=== PATIENT | female | born 1965 | race Asian ===

== ENCOUNTER 2016-09-17 16:45 | Emergency (ER) | payer OTHER ==
[2016-09-17] MEDS ORDERED: DEXAMETHASONE 10 MG/ML VIAL PO STA (17:01)
[2016-09-17] MEDS ORDERED: DEXAMETHASONE 10 MG/ML VIAL ONE (17:07)
[2016-09-17] MEDS ORDERED: CHERRY SYRUP 10 ML UDC PO ONE (17:07)
== END 2016-09-17 17:11 | disposition home or self-care (01) ==
DX: J02.0 Streptococcal pharyngitis (principal)
CPT/HCPCS: 87430; 99283; A9270

== ENCOUNTER 2016-10-01 17:40 | Emergency (ER) | payer OTHER | END 2016-10-01 18:25 | disposition home or self-care (01) | DX: J02.9 Acute pharyngitis, unspecified (principal) ==

== ENCOUNTER 2016-11-25 15:46 | Emergency (ER) | payer OTHER ==
[2016-11-25 15:53] VITALS: BP 118/74
[2016-11-25 16:12] LABS: RAPID STREP SCREEN REAGENT QC YELLOW (YELLOW)
--- NOTE | 2016-11-25 16:34 | ED Physician Documentation ---
PD HPI HEENT - Stated complaint Stated Complaint: SORE THROAT - Chief complaint Chief Complaint: Heent - History obtained from History obtained from: Patient - Additional information Additional information: 2 days sore throat with chills. No rhinorrhea, does have chronic non productive cough, not new. Review of Systems Constitutional: reports: Chills, Fatigue. denies: Fever Nose: denies: Rhinorrhea / runny nose, Congestion Throat: reports: Sore throat Respiratory: denies: Dyspnea GI: denies: Abdominal Pain, Vomiting PD PAST MEDICAL HISTORY - Past Medical History Cardiovascular: None Respiratory: None Neuro: None Endocrine/Autoimmune: None - Past Surgical History Past Surgical History: No - Present Medications Home Medications: Ambulatory Orders Medication Instructions Recorded Confirmed Penicillin V Potassium 500 mg PO QID #40 tablet 11/25/16 predniSONE [Deltasone] 60 mg PO DAILY 5 Days 11/25/16 - Allergies Allergies/Adverse Reactions: Allergies Allergy/AdvReac Type Severity Reaction Status Date / Time No Known Drug Allergies Allergy Verified 10/23/14 19:36 - Social History Does the pt smoke?: No Smoking Status: Never smoker Does the pt drink ETOH?: No Does the pt have substance abuse?: No - Immunizations Immunizations are current?: Yes - POLST Patient has POLST: No PD ED PE NORMAL - Vitals Vital signs reviewed: Yes - General General: Alert and oriented X 3, No acute distress - HEENT HEENT: PERRL, EOMI - Neck Neck: No adenopathy, Other (assymetric tonsillitis with exudates on right.) - Neuro Neuro: Alert and oriented X 3, Normal speech - Psych Psych: Normal mood, Normal affect Results - Vitals Vitals: Vital Signs - 24 hr 11/25/16 15:52 Temperature 37.0 C Heart Rate 82 Respiratory 18 Rate Blood Pressure 118/74 O2 Saturation 97 Oxygen O2 Source Room air - Labs Labs: Laboratory Tests 11/25/16 15:50 Group A Strep Rapid Negative PD MEDICAL DECISION MAKING - ED course ED course: Strep test is negative, but she does have significant exudative asymmetric tonsillitis. Departure - Departure Disposition: 01 Home, Self Care Clinical Impression: Exudative pharyngitis Condition: Good Record reviewed to determine appropriate education?: Yes Instructions: ED Strep Pharyngitis Poss Prescriptions: predniSONE [Deltasone] 60 mg PO DAILY 5 Days Penicillin V Potassium 500 mg PO QID #40 tablet Comments: Call your doctor to arrange a follow up appointment. Make the next available appointment. In the interim return anytime if worse or if new symptoms develop.
== END 2016-11-25 16:36 | disposition home or self-care (01) ==
LOC: ED 15:46
DX: J02.9 Acute pharyngitis, unspecified (principal)
CPT/HCPCS: 87070; 87430; 99283

== ENCOUNTER 2017-01-23 16:04 | Emergency (ER) | payer OTHER ==
[2017-01-23 16:49] LABS: RAPID STREP SCREEN REAGENT QC YELLOW (YELLOW)
--- NOTE | 2017-01-23 16:57 | ED Physician Documentation ---
PD HPI HEENT - Stated complaint Stated Complaint: SORE THROAT - Chief complaint Chief Complaint: Heent - History obtained from History obtained from: Patient - History of Present Illness Timing - onset: How many days ago (2-3) Timing - duration: Days Timing - details: Abrupt onset, Still present Review of Systems Constitutional: reports: Fever, Chills Nose: denies: Rhinorrhea / runny nose, Congestion Throat: reports: Sore throat, Swollen tonsils Respiratory: denies: Cough PD PAST MEDICAL HISTORY - Past Medical History Cardiovascular: None Respiratory: None Neuro: None Endocrine/Autoimmune: None - Past Surgical History Past Surgical History: No - Present Medications Home Medications: Ambulatory Orders Medication Instructions Recorded Confirmed Penicillin V Potassium 500 mg PO QID #40 tablet 11/25/16 predniSONE [Deltasone] 60 mg PO DAILY 5 Days 11/25/16 Cephalexin [Keflex] 500 mg PO TID #20 capsule 01/23/17 Dexamethasone [Decadron] 4 mg PO DAILY #5 tablet 01/23/17 - Allergies Allergies/Adverse Reactions: Allergies Allergy/AdvReac Type Severity Reaction Status Date / Time No Known Drug Allergies Allergy Verified 10/23/14 19:36 - Social History Does the pt smoke?: No Smoking Status: Never smoker Does the pt drink ETOH?: No Does the pt have substance abuse?: No - Immunizations Immunizations are current?: Yes - POLST Patient has POLST: No PD ED PE NORMAL - Vitals Vital signs reviewed: Yes - General General: Alert and oriented X 3, No acute distress, Well developed/nourished - HEENT HEENT: No: Pharynx benign (tonsillar edema both sides without peritonsillar enlargement. White exudates both sides. Neck anterior adenopathy.) - Neck Neck: Supple, no meningeal sign - Cardiac Cardiac: RRR, No murmur - Respiratory Respiratory: Clear bilaterally Results - Vitals Vitals: Oxygen O2 Source Room air - Labs Labs: Microbiology 01/23/17 16:30 Group A Strep Throat Culture - Final Throat Laboratory Tests 01/23/17 16:30 Group A Strep Rapid Negative PD MEDICAL DECISION MAKING - ED course Complexity details: reviewed results, considered differential (clinically 4/4 Centor, so will empirically treat pending culture. She has had similar in the past with negative cultures, though, but it really looks like strep. ), d/w patient Departure - Departure Disposition: Home, Self Care Clinical Impression: Exudative tonsillitis Condition: Stable Record reviewed to determine appropriate education?: Yes Instructions: ED Strep Pharyngitis Poss Follow-Up: VIANEY Barton [Provider Group] Prescriptions: Dexamethasone [Decadron] 4 mg PO DAILY #5 tablet Cephalexin [Keflex] 500 mg PO TID #20 capsule Comments: This looks very suspicious for strep/bacterial so will treat it that way until culture results in a few days. Decadron steroid for 5 days, and Cephalexin antibiotic for a week. Tylenol or Ibuprofen as needed for pains. Drink lots of fluids. Follow up PMD if not improved over the next few days and for culture results. Discharge Date/Time: 01/23/17 17:40
[2017-01-23 17:33] VITALS: BP 132/70
[2017-01-28 04:56] LABS: C.TRACHOMATIC RNA TMA THROAT NOT DETECTED (()); N.GONORRHOEAE RNA TMA THROAT NOT DETECTED (())
== END 2017-01-23 17:40 | disposition home or self-care (01) ==
LOC: ED 16:04
DX: J03.90 Acute tonsillitis, unspecified (principal)
CPT/HCPCS: 87070; 87430; 87491; 87591; 99283

== ENCOUNTER 2024-01-20 14:30 | Outpatient (CLI) | payer OTHER ==
--- NOTE | 2024-01-20 15:03 | XRAY Report ---
PROCEDURE: Chest 2V INDICATIONS: COUGH, UNSPECIFIED TECHNIQUE: 2 views of the chest were acquired. COMPARISON: None. FINDINGS: Surgical changes and devices: None. Lungs and pleura: No pleural effusions or pneumothorax. Lungs are clear. Mediastinum: Mediastinal contours appear normal. Heart size is normal. Bones and chest wall: No suspicious bony lesions. Overlying soft tissues appear unremarkable. IMPRESSION: No acute cardiopulmonary process. Reviewed by: Gil Mcallister MD on 01/20/2024 3:01 PM PDT Approved by: Gil Mcallister MD on 01/20/2024 3:01 PM PDT Station ID: [id number]
== END 2024-01-20 23:59 | disposition home or self-care (01) ==
LOC: DI.N 14:30
PROVIDERS: ATTEND Nurse Practitioner
DX: R05.9 Cough, unspecified (principal)